=== PATIENT | female | born 1985 | race Caucasian/White ===

== ENCOUNTER 2021-11-26 12:24 | Emergency (ER) | payer SELFPAY ==
[~2021-11-26] VITALS: Ht 165.1 cm; Wt 75.9 kg
[2021-11-26 12:27] VITALS: TEMP 98.7
[2021-11-26] MEDS ORDERED: NEXIUM 20MG20 MG PO (12:33)
[2021-11-26 14:40] VITALS: BP 120/61; PULSE 80
== END 2021-11-26 15:04 | disposition home or self-care (01) ==
LOC: COL.ER 12:24
DX: Z04.1 Encounter for examination and observation following transport accident (principal); Z98.1 Arthrodesis status; Z98.890 Other specified postprocedural states; V49.40XA Driver injured in collision with unspecified motor vehicles in traffic accident, initial encounter

== ENCOUNTER 2022-05-13 08:10 | Outpatient (CLI) | payer OTHER ==
[~2022-05-13] VITALS: Ht 165.1 cm; Wt 70.1 kg
[~2022-05-13 08:10] MED LIST: NEXIUM 20MG20 MG PO
[2022-05-13 08:43] VITALS: BP 114/78; PULSE 82; TEMP 98.4
[2022-05-13] MEDS ORDERED: VYVANSE70 MG PO (09:02)
[2022-05-13] MEDS ORDERED: COMPLETE MULTI1 TAB PO (09:03)
[2022-05-13] MEDS ORDERED: NEXIUM 20MG20 MG PO (09:03)
[2022-05-13] MEDS ORDERED: ZYRTEC 10MG10 MG PO (09:03)
--- NOTE | 2022-05-13 09:45 | NUR ---
Pt remained in dept for 30 mins following initial venofer infusion. She denies any concerns at this time. IV DC'd, site wrapped with coban. She is escorted out to elevator.
== END 2022-05-13 09:45 | disposition home or self-care (01) ==
LOC: EUO 08:10
DX: E61.1 Iron deficiency (principal)
CPT/HCPCS: J1756